=== PATIENT | female | born 1990 | race Asian ===

== ENCOUNTER 2017-03-13 16:39 | Emergency (ER) | payer MEDICAID, OTHER ==
[~2017-03-13] VITALS: Ht 152.4 cm; Wt 50.0 kg
[2017-03-13 16:43] VITALS: Ht 152.4 cm; Wt 50.0 kg
[2017-03-13] MEDS ORDERED: ONDANSETRON 4 MG INJ IV STA (18:45)
[2017-03-13] MEDS ORDERED: SOD CHLORIDE 0.9% 1,000 ML IV STA (18:45)
--- NOTE | 2017-03-13 19:12 | RADRPT ---
PROCEDURE: US OB. CLINICAL INDICATION: 26 real female with abdominal pain. TECHNIQUE: Transabdominal and transvaginal views of the pelvis are available for review. COMPARISON: No prior studies are available for comparison. FINDINGS: The uterus is anteflexed and contains a gestational sac measuring 2.9 x 1.8 x 3.3 cm. Mean sac diam eter is 2.65 cm which calculates to 7 weeks 5 days. Placenta: Circumferential. Presentation:[place]-rump length:1.1 cm equals 7 weeks 1 day. heart rate:161 beats per minute. Amniotic fluid volume: Normal. A yolk sac is identified. Ultrasound estimated gestational age:7 weeks 3 days plus or minus 0 weeks 4 days. SHEA FALGUNI) October 27, 2017. No ovarian or adnexal mass lesion is seen. There is no free fluid. The ovaries were not visualized. IMPRESSION: 1. A single viable fetus is identified with a heart rate of 161 beats per minute. AUA = 7 weeks 3 days plus or minus 0 weeks 4 days. 2. SHEA (FALGUNI)= October 27, 2017. RPTAT:AAJJ Physician Carolina Date Time Electronically viewed and signed by Physician Carolina on 03/13/2017 19:11 CHAN/
[2017-03-13 19:33] LABS: ADD SCAN DIFF NO
[2017-03-13 19:41] LABS: BASOPHILS % 0.2 % (0.0-2.0); EOSINOPHILS % 0.2 % (0.0-7.0); HEMATOCRIT 38.5 % (37.0-47.0); LYMPHOCYTES # 1.4 10^3/ul (0.8-2.9); LYMPHOCYTES % 11.3 % (15.0-51.0); MEAN CORPUSCULAR HGB CONC 33.8 g/dl (32.0-37.0); MEAN CORPUSCULAR VOLUME 85.9 fl (82.0-101.0); MEAN PLATELET VOLUME 9.4 fl (7.4-10.4); MONOCYTE # 0.7 10^3/ul (0.3-0.9); MONOCYTES % 5.2 % (0.0-11.0); NEUTROPHIL # 10.4 10^3/ul (1.6-7.5); NEUTROPHILS % 82.6 % (39.0-77.0); PLATELET COUNT 344 10^3/UL (140-415); RED BLOOD COUNT 4.48 10^6/ul (4.20-5.40); RED CELL DISTRIBUTION WIDTH 12.1 % (11.5-14.5); WHITE BLOOD COUNT 12.6 10^3/ul (4.8-10.8)
[2017-03-13 20:13] LABS: ADD UMIC YES; URINE BILIRUBIN (Dip) NEGATIVE (NEGATIVE); URINE BLOOD (Dip) TRACE (NEGATIVE); URINE COLOR YELLOW (YELLOW); URINE GLUCOSE (Dip) NEGATIVE (NEGATIVE); URINE KETONES (Dip) 3+ (NEGATIVE); URINE LEUKOCYTE ESTERASE (Dip) NEGATIVE (NEGATIVE); URINE NITRITE (Dip) NEGATIVE (NEGATIVE); URINE TOTAL PROTEIN (Dip) TRACE (NEGATIVE); URINE UROBILINOGEN (Dip) 0.2 E.U./dL (0.1-1.0)
[2017-03-13 20:29] LABS: ALBUMIN 5.1 g/dl (3.3-4.9); POTASSIUM 3.5 mmol/L (3.5-5.1)
[2017-03-13 20:30] LABS: BACTERIA,URINE FEW; SQUAMOUS EPITHELIAL CELL,UR MANY; URINE RBCS 0-2 /HPF (0)
[2017-03-13 20:32] LABS: ALBUMIN/GLOBULIN RATIO 1.59; BILIRUBIN,INDIRECT 0.3 mg/dl (0-1.1); BILIRUBIN,TOTAL 0.3 mg/dl (0.2-1.3); CREATININE 0.46 mg/dl (0.44-1.00); TOTAL PROTEIN 8.3 g/dl (6.1-8.1)
[2017-03-13 20:33] LABS: CALCIUM 9.5 mg/dl (8.4-10.2)
[2017-03-13] MEDS ORDERED: ONDA4TAB14 PO (21:38)
[2017-03-13] MEDS ORDERED: METO10TA92 PO (21:38)
--- NOTE | 2017-03-13 21:42 | ERD ---
ER Documentation Chief Complaint Date/Time DATE: 03/13/17 TIME: 21:40 Chief Complaint 7 WEEKS WITH NAUESEA AND VOMITING HPI Patient is a 26-year-old patient is a 26-year-old female who is approximately 7 weeks complaining of intermittent nausea and vomiting. She also admits to intermittent pelvic pain. Denies any dysuria hematuria or urinary frequency. She states she alternates between taking Reglan and Zofran at home. Denies fever. Denies any vaginal bleeding. ROS All systems reviewed and are negative except as per history of present illness. Medications Home Meds Active Scripts Ondansetron (Ondansetron Odt) 4 Mg Tab.rapdis, 4 MG PO Q6H Y for NAUSEA AND/OR VOMITING, #15 TAB Prov:DEYANIRA OTERO PA-C 03/13/17 Metoclopramide* (Reglan*) 10 Mg Tablet, 10 MG PO Q6 Y for NAUSEA AND/OR VOMITING , #15 TAB Prov:DEYANIRA OTERO PA-C 03/13/17 PMhx/Soc Medical and Surgical Hx: pt denies Medical Hx, pt denies Surgical Hx History of Surgery: No (DENIES MEDICAL AND SURGICAL HX.) Hx Alcohol Use: No Hx Substance Use: No Hx Tobacco Use: No Smoking Status: Never smoker FmHx Family History: No diabetes Physical Exam Vitals Vital Signs Date Time Temp Pulse Resp B/P Pulse Ox O2 Delivery O2 Flow Rate FiO2 03/13/17 16:43 98.7 87 20 130/70 99 Physical Exam Const: [] Head: Atraumatic General: well developed, well nourished, alert, nontoxic, no distress Head: normocephalic, atraumatic Eyes: PERRL, normal conjunctiva Neck: Supple, nontender, no lymphadenopathy, no midline tenderness Respiratory: Clear to auscaultation bilaterally, speaks in full sentences, no use of accesory muscles or labored breathing, no rales, ronchi, or wheezing Cardiovascular: RRR, No murmurs GI: soft, non tender, non distended, negative murphys sign, negative mcburneys point tenderness, no cva tenderness bilaterally, no rebound or guarding Result Diagram: 03/13/17190903/13/171909 Results 24 hrs Laboratory Tests Test 03/13/17 19:10 03/13/17 19:52 White Blood Count 12.610^3/ul Red Blood Count 4.4810^6/ul Hemoglobin 13.0g/dl Hematocrit 38.5% Mean Corpuscular Volume 85.9fl Mean Corpuscular Hemoglobin 29.0pg Mean Corpuscular Hemoglobin Concent 33.8g/dl Red Cell Distribution Width 12.1% Platelet Count 36087^3/UL Mean Platelet Volume 9.4fl Neutrophils % 82.6% Lymphocytes % 11.3% Monocytes % 5.2% Eosinophils % 0.2% Basophils % 0.2% Nucleated Red Blood Cells % 0.0/100WBC Neutrophils # 10.410^3/ul Lymphocytes # 1.410^3/ul Monocytes # 0.710^3/ul Eosinophils # 0.010^3/ul Basophils # 0.010^3/ul Nucleated Red Blood Cells # 0.010^3/ul Sodium Level 138mmol/L Potassium Level 3.5mmol/L Chloride Level 105mmol/L Carbon Dioxide Level 25mmol/L Anion Gap 12 Blood Urea Nitrogen 7mg/dl Creatinine 0.46mg/dl Glucose Level 86mg/dl Calcium Level 9.5mg/dl Total Bilirubin 0.3mg/dl Direct Bilirubin 0.00mg/dl Indirect Bilirubin 0.3mg/dl Aspartate Amino Transf (AST/SGOT) 26IU/L Alanine Aminotransferase (ALT/SGPT) 25IU/L Alkaline Phosphatase 46IU/L Total Protein 8.3g/dl Albumin 5.1g/dl Globulin 3.20g/dl Albumin/Globulin Ratio 1.59 Beta HCG, Quantitative 509730.0mIU/ml Urine Color YELLOW Urine Clarity CLEAR Urine pH 6.0 Urine Specific [place] >=1.030 Urine Ketones 3+ Urine Nitrite NEGATIVE Urine Bilirubin NEGATIVE Urine Urobilinogen 0.2 E.U./dL Urine Leukocyte Esterase NEGATIVE Urine Microscopic RBC 0-2/HPF Urine Microscopic WBC 2-5/HPF Urine Squamous Epithelial Cells MANY Urine Bacteria FEW Urine Hemoglobin TRACE Urine Glucose NEGATIVE% Urine Total Protein TRACE Current Medications Medications (Trade) Dose Ordered Sig/Tonia Route PRN Reason Start Time Stop Time Status Last Admin Dose Admin Sodium Chloride (NS) 1,000 ml @ 1,000 mls/hr Q1H STAT IV 03/13/17 18:45 03/13/17 19:44 DC 03/13/17 19:19 Ondansetron HCl (Zofran Inj) 4 mg ONCE STAT IV 03/13/17 18:45 03/13/17 18:47 DC 03/13/17 19:18 Procedures/MDM 26-year-old female has nausea and vomiting. Her vitals are normal and her exam is normal. Her ultrasound and blood work are also unremarkable. She felt better with IV fluids and Zofran and will be discharged with Zofran and Reglan as she alternates between the 2 at home. She was also given copies of all of her labs and ultrasound reports that she can follow with primary care. Recommended this patient follow up with her primary care doctor within 48 hours or return to the emergency room for any worsening of symptoms. However this time I do believe there is suitable for outpatient management. I answered all their questions and they agreed with the plan and were discharged home. Departure Diagnosis: Primary Impression: Nausea and vomiting Condition: Stable Patient Instructions: Nausea and Vomiting-Adult Additional Instructions: Call your primary care doctor TOMORROW for an appointment during the next 1-2 days.See the doctor sooner or return here if your condition worsens before your appointment time. DEYANIRA OTERO PA-C March 13, 2017 21:42
[2017-03-13 21:49] VITALS: BP 105/88; PULSE 83; RESP 16
== END 2017-03-13 21:59 | disposition home or self-care (01) ==
LOC: FTE 16:39
DX: O21.9 Vomiting of pregnancy, unspecified (principal); R10.2 Pelvic and perineal pain; Z3A.01 Less than 8 weeks gestation of pregnancy
CPT/HCPCS: 36415; 76801; 80053; 81001; 84702; 85025; 86900; 86901; 96361; 96374; J2405; J7030; Z7502

== ENCOUNTER 2017-03-17 09:16 | Emergency (ER) | payer MEDICAID, OTHER ==
[~2017-03-17] VITALS: Ht 157.5 cm; Wt 49.5 kg
[~2017-03-17 09:16] MED LIST: METO10TA92 PO; ONDA4TAB14 PO
[2017-03-17 09:19] VITALS: Ht 157.5 cm; Wt 49.5 kg
[2017-03-17] MEDS ORDERED: ONDANSETRON 4 MG INJ IV STA (09:55)
[2017-03-17] MEDS ORDERED: SOD CHLORIDE 0.9% 1,000 ML IV ONE ×2 (10:00→12:00)
[2017-03-17 10:15] LABS: ADD SCAN DIFF NO
[2017-03-17 10:19] LABS: BASOPHILS % 0.3 % (0.0-2.0); EOSINOPHILS % 0.1 % (0.0-7.0); HEMATOCRIT 39.2 % (37.0-47.0); HEMOGLOBIN 13.5 g/dl (12.0-16.0); LYMPHOCYTES # 1.2 10^3/ul (0.8-2.9); LYMPHOCYTES % 9.6 % (15.0-51.0); MEAN CORPUSCULAR HEMOGLOBIN 29.4 pg (29.0-33.0); MEAN CORPUSCULAR HGB CONC 34.4 g/dl (32.0-37.0); MEAN CORPUSCULAR VOLUME 85.4 fl (82.0-101.0); MEAN PLATELET VOLUME 9.2 fl (7.4-10.4); MONOCYTE # 0.6 10^3/ul (0.3-0.9); MONOCYTES % 4.6 % (0.0-11.0); NEUTROPHILS % 84.9 % (39.0-77.0); PLATELET COUNT 355 10^3/UL (140-415); RED BLOOD COUNT 4.59 10^6/ul (4.20-5.40); RED CELL DISTRIBUTION WIDTH 11.9 % (11.5-14.5)
[2017-03-17] MEDS ORDERED: FAMOTIDINE 20 MG TAB PO ONE (10:30)
[2017-03-17 10:36] LABS: ADD UMIC YES; URINE BILIRUBIN (Dip) NEGATIVE (NEGATIVE); URINE BLOOD (Dip) TRACE (NEGATIVE); URINE COLOR LT. YELLOW (YELLOW); URINE GLUCOSE (Dip) NEGATIVE (NEGATIVE); URINE KETONES (Dip) 3+ (NEGATIVE); URINE LEUKOCYTE ESTERASE (Dip) NEGATIVE (NEGATIVE); URINE NITRITE (Dip) NEGATIVE (NEGATIVE); URINE TOTAL PROTEIN (Dip) TRACE (NEGATIVE); URINE UROBILINOGEN (Dip) 1.0 E.U./dL (0.1-1.0)
[2017-03-17 10:42] LABS: ALBUMIN 5.2 g/dl (3.3-4.9); ALBUMIN/GLOBULIN RATIO 1.57; BILIRUBIN,INDIRECT 0.4 mg/dl (0-1.1); BILIRUBIN,TOTAL 0.4 mg/dl (0.2-1.3); CALCIUM 9.5 mg/dl (8.4-10.2); CREATININE 0.48 mg/dl (0.44-1.00); POTASSIUM 4.2 mmol/L (3.5-5.1); TOTAL PROTEIN 8.5 g/dl (6.1-8.1)
[2017-03-17 10:47] LABS: BACTERIA,URINE MODERATE; MUCUS,URINE MANY
[2017-03-17] MEDS ORDERED: METOCLOPRAMIDE 10 MG INJ IV ONE (13:00)
--- NOTE | 2017-03-17 13:06 | ERD ---
ER Documentation Chief Complaint Date/Time DATE: 03/17/17 TIME: 13:03 Chief Complaint HYPEREMESIS 8 WEEKS HPI Is a 26-year-old female who presents to the emergency department today complaining of nausea and vomiting that is intermittent but persistent. Patient states that she is 7 weeks . States she was here a few days ago and felt better after the medication and IV fluids. States she has some mild crampy abdominal pain. States she has been alternating Reglan and Zofran and trying to eat before getting out of bed. States she has a doctor at [facility] Dr. Jorje Aviles and he gave her Diclogis 2 weeks ago. States that those were samples. Denies any fevers or chills. ROS All systems reviewed and are negative except as per history of present illness. Medications Home Meds Active Scripts Famotidine* (Pepcid*) 20 Mg Tablet, 20 MG PO BID for 10 Days, TAB Prov:HUSSAIN MATTHEWS PA-C 03/17/17 Ondansetron (Ondansetron Odt) 4 Mg Tab.rapdis, 4 MG PO Q6H Y for NAUSEA AND/OR VOMITING, #15 TAB Prov:DEYANIRA OTERO PA-C 03/13/17 Metoclopramide* (Reglan*) 10 Mg Tablet, 10 MG PO Q6 Y for NAUSEA AND/OR VOMITING , #15 TAB Prov:DEYANIRA OTERO PA-C 03/13/17 Allergies Allergies: Coded Allergies: No Known Allergy (Unverified , 03/17/17) PMhx/Soc Medical and Surgical Hx: pt denies Medical Hx, pt denies Surgical Hx History of Surgery: No Anesthesia Reaction: No Hx Neurological Disorder: No Hx Respiratory Disorders: No Hx Cardiac Disorders: No Hx Psychiatric Problems: No Hx Miscellaneous Medical Probl: No Hx Alcohol Use: No Hx Substance Use: No Hx Tobacco Use: No Smoking Status: Never smoker Physical Exam Vitals Vital Signs Date Time Temp Pulse Resp B/P Pulse Ox O2 Delivery O2 Flow Rate FiO2 03/17/17 09:19 98.8 104 18 126/78 99 Physical Exam Const: [] Head: Atraumatic Eyes: Normal Conjunctiva ENT: Normal External Ears, Nose and Mouth. Neck: Full range of motion..~ No meningismus. Resp: Clear to auscultation bilaterally Cardio: Regular rate and rhythm, no murmurs Abd: Soft, non tender, non distended. Normal bowel sounds Skin: No petechiae or rashes Back: No midline or flank tenderness Ext: No cyanosis, or edema Neur: Awake and alert Psych: Normal Mood and Affect Result Diagram: 03/17/17 1005 03/17/17 1005 Results 24 hrs Laboratory Tests Test 03/17/17 10:05 White Blood Count 13.010^3/ul Red Blood Count 4.5910^6/ul Hemoglobin 13.5g/dl Hematocrit 39.2% Mean Corpuscular Volume 85.4fl Mean Corpuscular Hemoglobin 29.4pg Mean Corpuscular Hemoglobin Concent 34.4g/dl Red Cell Distribution Width 11.9% Platelet Count 50571^3/UL Mean Platelet Volume 9.2fl Neutrophils % 84.9% Lymphocytes % 9.6% Monocytes % 4.6% Eosinophils % 0.1% Basophils % 0.3% Nucleated Red Blood Cells % 0.0/100WBC Neutrophils # 11.010^3/ul Lymphocytes # 1.210^3/ul Monocytes # 0.610^3/ul Eosinophils # 0.010^3/ul Basophils # 0.010^3/ul Nucleated Red Blood Cells # 0.010^3/ul Urine Color LT. YELLOW Urine Clarity CLEAR Urine pH 6.0 Urine Specific [place] >=1.030 Urine Ketones 3+ Urine Nitrite NEGATIVE Urine Bilirubin NEGATIVE Urine Urobilinogen 1.0 E.U./dL Urine Leukocyte Esterase NEGATIVE Urine Microscopic RBC 5-10/HPF Urine Microscopic WBC 5-10/HPF Urine Epithelial Cells MODERATE Urine Bacteria MODERATE Urine Mucus MANY Urine Hemoglobin TRACE Urine Glucose NEGATIVE% Urine Total Protein TRACE Sodium Level 140mmol/L Potassium Level 4.2mmol/L Chloride Level 104mmol/L Carbon Dioxide Level 22mmol/L Anion Gap 18 Blood Urea Nitrogen 7mg/dl Creatinine 0.48mg/dl Glucose Level 75mg/dl Calcium Level 9.5mg/dl Total Bilirubin 0.4mg/dl Direct Bilirubin 0.00mg/dl Indirect Bilirubin 0.4mg/dl Aspartate Amino Transf (AST/SGOT) 20IU/L Alanine Aminotransferase (ALT/SGPT) 28IU/L Alkaline Phosphatase 45IU/L Total Protein 8.5g/dl Albumin 5.2g/dl Globulin 3.30g/dl Albumin/Globulin Ratio 1.57 Lipase 67U/L Current Medications Medications (Trade) Dose Ordered Sig/Tonia Route PRN Reason Start Time Stop Time Status Last Admin Dose Admin Ondansetron HCl 4 mg 4 mg ONCE STAT IV 03/17/17 09:55 03/17/17 09:57 DC 03/17/17 10:09 Sodium Chloride (NS) 1,000 ml @ 1,000 mls/hr Q1H ONCE IV 03/17/17 10:00 03/17/17 10:59 DC 03/17/17 10:09 Famotidine 20 mg 20 mg ONCE ONCE PO 03/17/17 10:30 03/17/17 10:31 DC 03/17/17 10:14 Sodium Chloride (NS) 1,000 ml @ 1,000 mls/hr Q1H ONCE IV 03/17/17 12:00 03/17/17 12:59 DC 03/17/17 12:00 Metoclopramide HCl (Reglan) 10 mg ONCE ONCE IV 03/17/17 13:00 03/17/17 13:01 DC 03/17/17 13:09 Procedures/MDM This a 26-year-old female who presents to the emergency department today for nausea and vomiting in . Patient was seen here 4 days ago and had a complete workup at that time. She is a that is approximately 7 weeks . Patient's laboratory work showed a mildly elevated white blood cell count at that time however all other laboratory work was within normal limits. She had no evidence of urinary tract infection. Her ultrasound was normal and showed an IUP of 7 weeks with good heart tones at 161. On physical exam she did have some mild epigastric pain. Patient is afebrile and otherwise well-appearing however given that patient is I did repeat laboratory work. I do not feel the patient requires a repeat ultrasound at this time given patient had a normal ultrasound 4 days ago. Patient had no pelvic pain on physical exam. Laboratory work today shows a mildly elevated white blood cell count of 13. She is not anemic. Platelets are within normal limits. Electrolytes are within normal limits. Glucose within normal limits. Liver functions normal limits. Lipase within normal limits. UA is negative for infection but showed 3+ ketones. Patient was given Zofran here in the emergency department as well as 2 L of fluids. She is not actively vomiting and I have not seen her vomiting here during the course of her stay. She did drink some juice and was able to tolerate that however she did feel a little bit of nausea and was then even Zofran. Given patient's normal laboratory workup and she is not actively vomiting I do not feel the patient requires admission at this time. I discussed with the patient that she should follow back up with her doctor at [facility] it is before her scheduled visit for a couple weeks from now. Patient understood. Patient symptoms at this time is consistent with vomiting during of her says hyperemesis gravidarum. Patient indicated she had Zofran and Reglan at home. I will give her a prescription for Pepcid. Discussed the patient with Dr. Cortes and he is in agreement with the plan. Departure Diagnosis: Primary Impression: Vomiting during Condition: HUSSAIN Malloy PA-C Mar 17, 2017 13:06
[2017-03-17] MEDS ORDERED: FAMO-18 PO (13:16)
== END 2017-03-17 13:29 | disposition home or self-care (01) ==
LOC: FTE 09:16
DX: O21.9 Vomiting of pregnancy, unspecified (principal); Z3A.01 Less than 8 weeks gestation of pregnancy
CPT/HCPCS: 80053; 81001; 83690; 85025; J2405; J2765; J7030; Z7610; 36415; 96374; 96375

== ENCOUNTER 2018-11-12 14:32 | Emergency (ER) | payer OTHER ==
[~2018-11-12] VITALS: Wt 57.2 kg
[~2018-11-12 14:32] MED LIST changes: +DOXY25TA33 PO; +FAMO-96 PO; +PYRI25TA4 PO
--- NOTE | 2018-11-12 16:17 | ERD ---
ER Documentation Chief Complaint Chief Complaint /o epigastric pain with N/V. 10 weeks HPI 27-year-old female, with a EGA 12 weeks by LMP 09/11/18, presents to the emergency department, complaining of 3 days with worsening of nausea, persistent vomiting, pelvic pain and general malaise. The patient has already established care. She denies vaginal bleeding, no fever, no chills, no urinary symptoms. ROS All systems reviewed and are negative except as per history of present illness. Medications Home Meds Active Scripts Famotidine* (Pepcid*) 20 Mg Tablet, 20 MG PO BID for 10 Days, #20 TAB Prov:YESSY HURST MD 11/12/18 Doxylamine Succinate* (Unisom Sleep Aid*) 25 Mg Tablet, 25 MG PO HS, #60 TAB Prov:YESSY HURST MD 11/01/18 Pyridoxine Hcl* (Pyridoxine Hcl*) 25 Mg Tablet, 25 MG PO QHS, #60 TAB Prov:YESSY HURST MD 11/01/18 Famotidine* (Pepcid*) 20 Mg Tablet, 20 MG PO BID for 10 Days, TAB Prov:HUSSAIN MATTHEWS PA-C 03/17/17 Ondansetron (Ondansetron Odt) 4 Mg Tab.rapdis, 4 MG PO Q6H PRN for NAUSEA AND/OR VOMITING, #15 TAB Prov:DEYANIRA OTERO PA-C 03/13/17 Metoclopramide* (Reglan*) 10 Mg Tablet, 10 MG PO Q6 PRN for NAUSEA AND/OR VOMITING, #15 TAB Prov:DEYANIRA OTERO PA-C 03/13/17 Allergies Allergies: Coded Allergies: No Known Allergy (Unverified , 03/17/17) PMhx/Soc History of Surgery: No Anesthesia Reaction: No Hx Neurological Disorder: No Hx Respiratory Disorders: No Hx Cardiac Disorders: No Hx Psychiatric Problems: No Hx Miscellaneous Medical Probl: No Hx Alcohol Use: No Hx Substance Use: No Hx Tobacco Use: No FmHx Family History: No diabetes, No coronary disease Physical Exam Vitals Vital Signs Date Temp Pulse Resp B/P (MAP) Pulse Ox O2 O2 Flow FiO2 Time Delivery Rate 11/12/18 99.1 92 16 123/65 100 Room Air 19:40 (84) 11/12/18 99.7 105 20 122/79 98 14:36 (93) Physical Exam Const: No acute distress Head: Atraumatic Eyes: Normal Conjunctiva ENT: Normal External Ears, Nose and Mouth. Neck: Full range of motion. No meningismus. Resp: Clear to auscultation bilaterally Cardio: Regular rate and rhythm, no murmurs Abd: Soft, non tender, non distended. Normal bowel sounds Skin: No petechiae or rashes Back: No midline or flank tenderness Ext: No cyanosis, or edema Neur: Awake and alert Psych: Normal Mood and Affect Result Diagram: 11/12/18 1640 11/12/18 1640 Results 24 hrs Laboratory Tests Test 11/12/18 16:40 White Blood Count 13.2 10^3/ul Red Blood Count 4.72 10^6/ul Hemoglobin 13.2 g/dl Hematocrit 39.0 % Mean Corpuscular Volume 82.6 fl Mean Corpuscular Hemoglobin 28.0 pg Mean Corpuscular Hemoglobin Concent 33.8 g/dl Red Cell Distribution Width 12.4 % Platelet Count 369 10^3/UL Mean Platelet Volume 9.3 fl Immature Granulocytes % 0.500 % Neutrophils % 76.8 % Lymphocytes % 14.6 % Monocytes % 7.4 % Eosinophils % 0.4 % Basophils % 0.3 % Nucleated Red Blood Cells % 0.0 /100WBC Immature Granulocytes # 0.070 10^3/ul Neutrophils # 10.1 10^3/ul Lymphocytes # 1.9 10^3/ul Monocytes # 1.0 10^3/ul Eosinophils # 0.1 10^3/ul Basophils # 0.0 10^3/ul Nucleated Red Blood Cells # 0.0 10^3/ul Urine Color YELLOW Urine Clarity SLIGHTLY CLOUDY Urine pH 5.0 Urine Specific [place] 1.032 Urine Ketones 1+ mg/dL Urine Nitrite NEGATIVE mg/dL Urine Bilirubin NEGATIVE mg/dL Urine Urobilinogen NEGATIVE mg/dL Urine Leukocyte Esterase NEGATIVE [place]/ul Urine Microscopic RBC 2 /HPF Urine Microscopic WBC 1 /HPF Urine Squamous Epithelial Cells MODERATE /HPF Urine Bacteria FEW /HPF Urine Mucus MANY /HPF Urine Hemoglobin NEGATIVE mg/dL Urine Glucose NEGATIVE mg/dL Urine Total Protein NEGATIVE mg/dl Sodium Level 138 mmol/L Potassium Level 3.7 mmol/L Chloride Level 99 mmol/L Carbon Dioxide Level 24 mmol/L Anion Gap 15 Blood Urea Nitrogen 6 mg/dl Creatinine 0.45 mg/dl Est Glomerular Filtrat Rate mL/min > 60 mL/min Glucose Level 96 mg/dl Calcium Level 9.9 mg/dl Total Bilirubin 0.0 mg/dl Direct Bilirubin 0.00 mg/dl Indirect Bilirubin 0.0 mg/dl Aspartate Amino Transf (AST/SGOT) 20 IU/L Alanine Aminotransferase (ALT/SGPT) 9 IU/L Alkaline Phosphatase 53 IU/L Total Protein 8.5 g/dl Albumin 4.7 g/dl Globulin 3.80 g/dl Albumin/Globulin Ratio 1.23 Lipase 114 U/L Current Medications Medications Dose Sig/Tonia Start Time Status Last (Trade) Ordered Route PRN Stop Time Admin Dose Reason Admin Lactated 1,000 ml @ Q1H STAT 11/12/18 DC 11/12/18 Ringer's 1,000 mls/hr IV 16:28 16:37 11/12/18 17:27 10 mg ONCE ONCE 11/12/18 DC 11/12/18 Metoclopramid PO 16:30 16:37 e HCl 11/12/18 16:33 (Reglan) Lactated 1,000 ml @ Q1H ONCE 11/12/18 DC 11/12/18 Ringer's 1,000 mls/hr IV 18:30 18:14 11/12/18 19:29 Famotidine 20 mg ONCE ONCE 11/12/18 DC 11/12/18 (Pepcid Iv) IV 18:30 18:14 11/12/18 18:31 Procedures/MDM Vital signs stable, Physical exam unremarkable. Differential diagnosis include but not limited to: Gastroenteritis, appendicitis, dehydration, hyperemesis gravidarum, UTI, anemia. Physical examination and clinical presentation most likely consistent with hyperemesis gravidarum. During the ED course the patient remained hemodynamically stable and asymptomatic, she received IV hydration and Reglan p.o. with marked improvement of the symptoms. Results and clinical impression discussed with patient who agrees with management. The patient is stable to be treated outpatient and will be discharged home with close monitoring and follow-up in 2 days with her primary physician. The patient was instructed regarding the outcomes and the potential complications like severe bleeding and . If the patient presents severe bleeding or pain, she was instructed to return to the hospital immediately. Disclaimer: Inadvertent spelling and grammatical errors are likely due to EHR/dictation software use and do not reflect on the overall quality of patient care. Also, please note that the electronic time recorded on this note does not necessarily reflect the actual time of the patient encounter. Departure Diagnosis: Primary Impression: Hyperemesis gravidarum Condition: Stable Additional Instructions: Thank you very much for allowing us to participate in your care. Your health and safety is our top priority at [facility]. Call your primary care doctor TOMORROW for an appointment during the next 2-4 days and bring all the information and medications prescribed. Have prescriptions filled and follow precisely the directions on the label. If the symptoms get worse and your provider is unavailable, return to the Emergency Department immediately. YESSY HURST MD Nov 12, 2018 16:17
[2018-11-12] MEDS ORDERED: LACTATED RINGER'S 1,000 ML IV STA (16:28)
[2018-11-12] MEDS ORDERED: METOCLOPRAMIDE 10 MG TAB PO ONE (16:30)
[2018-11-12] MEDS ORDERED: FAMOTIDINE 20 MG INJ IV ONE (18:30)
[2018-11-12] MEDS ORDERED: LACTATED RINGER'S 1,000 ML IV ONE (18:30)
[2018-11-12] MEDS ORDERED: FAMO-96 PO (19:05)
[2018-11-12 19:40] VITALS: BP 123/65; PULSE 92; RESP 16
== END 2018-11-12 19:42 | disposition home or self-care (01) ==
LOC: FTE 14:32
DX: O21.9 Vomiting of pregnancy, unspecified (principal); Z3A.10 10 weeks gestation of pregnancy
CPT/HCPCS: 36415; 80053; 81001; 83690; 85025; 96374; J7120; Z7502; Z7610; 81003

== ENCOUNTER 2018-12-02 16:38 | Emergency (ER) | payer OTHER ==
[~2018-12-02] VITALS: Ht 165.1 cm; Wt 55.7 kg
[2018-12-02 16:49] VITALS: Ht 165.1 cm; Wt 55.7 kg
[2018-12-02] MEDS ORDERED: LACTATED RINGER'S 1,000 ML IV ONE (23:00)
[2018-12-02] MEDS ORDERED: FAMOTIDINE 20 MG INJ IV ONE (23:00)
[2018-12-02] MEDS ORDERED: METOCLOPRAMIDE 10 MG INJ IV ONE (23:00)
[2018-12-03 00:35] VITALS: BP 107/55; PULSE 87; RESP 18
[2018-12-03] MEDS ORDERED: LACTATED RINGER'S 500 ML IV ONE (01:30)
[2018-12-03] MEDS ORDERED: METO10TA3 PO (02:09)
[2018-12-03] MEDS ORDERED: PYRI25TA4 PO (02:09)
[2018-12-03] MEDS ORDERED: ONDA4TAB14 PO (02:09)
--- NOTE | 2018-12-03 17:11 | ERD ---
ER Documentation Chief Complaint Chief Complaint Complains of vomiting x3 days and 13 weeks HPI 28 year-old [female] coming in today with Chief Complaint: Vomiting History of Present Illness: Patient coming in today with complaint of vomiting for 3 days. Patient reports to be 13 weeks . Patient reports recent e pisode of similar vomiting during October 2018. At home medications and remedies without success. Patient reporting abdominal pain to epigastric area, burning, /. Patient reporting vomiting with yellow color, unable to tolerate food or liquid. Review of systems: All systems were reviewed and are negative except for what is indicated in the history of present illness. Past Medical History: [Negative for hypertension, diabetes or other medical problems] Social History: [Patient denies tobacco, alcohol, elicit drug use] Medications: [None] [Reviewed as documented Nursing Notes] Allergies: [NKDA] [Reviewed as documented in Nursing Notes] Social Concerns: Denies ROS All systems reviewed and are negative except as per history of present illness. Medications Home Meds Active Scripts Ondansetron (Ondansetron Odt) 4 Mg Tab.rapdis, 4 MG PO Q6H PRN for NAUSEA AND/OR VOMITING, #20 TAB Prov:NILSON MARIA NP 12/03/18 Metoclopramide Hcl* (Metoclopramide Hcl*) 10 Mg Tablet, 10 MG PO Q12, #10 TAB Prov:NILSON MARIA NP 12/03/18 Pyridoxine Hcl* (Pyridoxine Hcl*) 25 Mg Tablet, 25 MG PO QHS for NAUSEA PREVENTION, #60 TAB Prov:NILSON MARIA NP 12/03/18 Famotidine* (Pepcid*) 20 Mg Tablet, 20 MG PO BID for 10 Days, #20 TAB Prov:YESSY HURST MD 11/12/18 Doxylamine Succinate* (Unisom Sleep Aid*) 25 Mg Tablet, 25 MG PO HS, #60 TAB Prov:YESSY HURST MD 11/01/18 Pyridoxine Hcl* (Pyridoxine Hcl*) 25 Mg Tablet, 25 MG PO QHS, #60 TAB Prov:YESSY HURST MD 11/01/18 Famotidine* (Pepcid*) 20 Mg Tablet, 20 MG PO BID for 10 Days, TAB Prov:HUSSAIN MATTHEWS PA-C 03/17/17 Ondansetron (Ondansetron Odt) 4 Mg Tab.rapdis, 4 MG PO Q6H PRN for NAUSEA AND/OR VOMITING, #15 TAB Prov:DEYANIRA OTERO PA-C 03/13/17 Metoclopramide* (Reglan*) 10 Mg Tablet, 10 MG PO Q6 PRN for NAUSEA AND/OR VOMITING, #15 TAB Prov:DEYANIRA OTERO PA-C 03/13/17 Allergies Allergies: Coded Allergies: No Known Allergy (Unverified , 03/17/17) PMhx/Soc History of Surgery: No Anesthesia Reaction: No Hx Neurological Disorder: No Hx Respiratory Disorders: No Hx Cardiac Disorders: No Hx Psychiatric Problems: No Hx Miscellaneous Medical Probl: No Hx Alcohol Use: No Hx Substance Use: No Hx Tobacco Use: No FmHx Family History: No diabetes, No coronary disease Physical Exam Vitals Vital Signs Date Temp Pulse Resp B/P (MAP) Pulse Ox O2 O2 Flow FiO2 Time Delivery Rate 12/03/18 98.4 87 18 107/55 99 Room Air 00:35 (72) 12/02/18 97.8 114 20 128/74 98 16:49 (92) Physical Exam Const: No acute distress Head: Atraumatic Eyes: Normal Conjunctiva ENT: Normal External Ears, Nose and Mouth. Neck: Full range of motion. No meningismus. Resp: Clear to auscultation bilaterally Cardio: Regular rate and rhythm, no murmurs Abd: Soft, non tender, non distended. Normal bowel sounds Skin: No petechiae or rashes Back: No midline or flank tenderness Ext: No cyanosis, or edema Neur: Awake and alert Psych: Normal Mood and Affect Result Diagram: 12/02/18229912/02/182299 Results 24 hrs Laboratory Tests Test 12/02/18 22:59 12/02/18 23:00 Beta HCG, Quantitative 859805.0 mIU/ml White Blood Count 14.4 10^3/ul Red Blood Count 4.93 10^6/ul Hemoglobin 13.8 g/dl Hematocrit 41.8 % Mean Corpuscular Volume 84.8 fl Mean Corpuscular Hemoglobin 28.0 pg Mean Corpuscular Hemoglobin Concent 33.0 g/dl Red Cell Distribution Width 12.6 % Platelet Count 362 10^3/UL Mean Platelet Volume 8.8 fl Immature Granulocytes % 0.600 % Neutrophils % 79.1 % Lymphocytes % 13.8 % Monocytes % 5.9 % Eosinophils % 0.3 % Basophils % 0.3 % Nucleated Red Blood Cells % 0.0 /100WBC Immature Granulocytes # 0.090 10^3/ul Neutrophils # 11.4 10^3/ul Lymphocytes # 2.0 10^3/ul Monocytes # 0.9 10^3/ul Eosinophils # 0.0 10^3/ul Basophils # 0.0 10^3/ul Nucleated Red Blood Cells # 0.0 10^3/ul Urine Color YELLOW Urine Clarity SLIGHTLY CLOUDY Urine pH 6.0 Urine Specific [place] 1.033 Urine Ketones 2+ mg/dL Urine Nitrite NEGATIVE mg/dL Urine Bilirubin NEGATIVE mg/dL Urine Urobilinogen NEGATIVE mg/dL Urine Leukocyte Esterase NEGATIVE [place]/ul Urine Microscopic RBC 2 /HPF Urine Microscopic WBC 3 /HPF Urine Squamous Epithelial Cells FEW /HPF Urine Bacteria FEW /HPF Urine Mucus MANY /HPF Urine Hemoglobin NEGATIVE mg/dL Urine Glucose 1+ mg/dL Urine Total Protein 1+ mg/dl Sodium Level 137 mmol/L Potassium Level 4.3 mmol/L Chloride Level 96 mmol/L Carbon Dioxide Level 25 mmol/L Anion Gap 16 Blood Urea Nitrogen 9 mg/dl Creatinine 0.48 mg/dl Est Glomerular Filtrat Rate mL/min > 60 mL/min Glucose Level 82 mg/dl Calcium Level 9.7 mg/dl Current Medications Medications Dose Sig/Tonia Start Time Status Last (Trade) Ordered Route PRN Stop Time Admin Dose Reason Admin Lactated 1,000 ml @ Q1H ONCE 12/02/18 DC 12/02/18 Ringer's 1,000 mls/hr IV 23:00 23:21 12/02/18 23:59 Famotidine 20 mg ONCE ONCE 12/02/18 DC 12/02/18 (Pepcid Iv) IV 23:00 23:21 12/02/18 23:01 10 mg ONCE ONCE 12/02/18 DC 12/02/18 Metoclopramid IV 23:00 23:21 e HCl 12/02/18 23:01 (Reglan) Lactated 500 ml @ Q1H ONCE 12/03/18 DC 12/03/18 Ringer's 500 mls/hr IV 01:30 01:18 12/03/18 02:29 Procedures/MDM Patient with complaint of vomiting during . ED course includes a thorough examination and history. ED course also includes labs, including CBC and metabolic panel, and ultrasound due to abdominal pain. Low suspicion for life threatening gynecological gastrointestinal emergency. Otherwise healthy patient presenting with constellation of symptoms likely representing uncomplicated hyperemesis gravidarum as characterized by history, physical exam findings, [radiologic/lab findings]. ------- US IMPRESSION: 1. Single live intrauterine with an estimated gestational age of 12 weeks 2 days based on ultrasound measurement. ------ Reassessment at 0105: Patient reports dizziness has decreased but still present after 1 L of lactated Ringer. Vomiting no longer present. Due to current presentation, will continue hydration for 30ml/kg. Reassessment at 02:25: She reported dizziness no longer along present. Patient able to tolerate p.o. fluids. Disposition education given. At home remedies discussed. Return precautions given. No respiratory distress, otherwise relatively well appearing and nontoxic. Patient educated on diagnoses, prescriptions, follow-up care, return precautions. Strict return precautions given for worsening condition; questions answered discharge. Disposition for discharge with followup in 2-3 days with PCP/clinic, probably with film recordist. Departure Diagnosis: Primary Impression: Hyperemesis gravidarum Condition: Stable Patient Instructions: Hyperemesis Gravidarum (Severe Morning Sickness) Referrals: [facility] YOU HAVE RECEIVED A MEDICAL SCREENING EXAM AND THE RESULTS INDICATE THAT YOU DO NOT HAVE A CONDITION THAT REQUIRES URGENT TREATMENT IN THE EMERGENCY DEPARTMENT. FURTHER EVALUATION AND TREATMENT OF YOUR CONDITION CAN WAIT UNTIL YOU ARE SEEN IN YOUR DOCTORS OFFICE WITHIN THE NEXT 1-2 DAYS. IT IS YOUR RESPONSIBILITY TO MAKE AN APPOINTMENT FOR FOLOW-UP CARE. IF YOU HAVE A PRIMARY DOCTOR --you should call your primary doctor and schedule an appointment IF YOU DO NOT HAVE A PRIMARY DOCTOR YOU CAN CALL OUR PHYSICIAN REFERRAL HOTLINE AT IF YOU CAN NOT AFFORD TO SEE A PHYSICIAN YOU CAN CHOSE FROM THE FOLLOWING [facility] CL[facility]ICS [facility] [address] [facility] [address] [facility]. [facility] [address] [facility] [address] [facility] [address] [facility]. [facility] [address] [facility]. [facility] YOU HAVE RECEIVED A MEDICAL SCREENING EXAM AND THE RESULTS INDICATE THAT YOU DO NOT HAVE A CONDITION THAT REQUIRES URGENT TREATMENT IN THE EMERGENCY DEPARTMENT. FURTHER EVALUATION AND TREATMENT OF YOUR CONDITION CAN WAIT UNTIL YOU ARE SEEN IN YOUR DOCTORS OFFICE WITHIN THE NEXT 1-2 DAYS. IT IS YOUR RESPONSIBILITY TO MAKE AN APPOINTMENT FOR FOLOW-UP CARE. IF YOU HAVE A PRIMARY DOCTOR --you should call your primary doctor and schedule and appointment IF YOU DO NOT HAVE A PRIMARY DOCTOR YOU CAN CALL OUR PHYSICIAN REFERRAL HOTLINE AT . IF YOU CAN NOT AFFORD TO SEE A PHYSICIAN YOU CAN CHOSE FROM THE FOLLOWING [facility] INSTITUTIONS: [facility] [address] [place] [address] [facility] [address] [place], [place] [id number] [place] [address] + [facility] [address] [place] [address] Additional Instructions: Call your primary care doctor TOMORROW for an appointment during the next 2-3 days.See the doctor sooner or return here if your condition worsens before your appointment time. ENSURE HYDRATION. RETURN TO ER IF DIZZINESS/FAINT S/S RETURN AND IF AT HOME REMEDIES AND PRESCRIPTION NOT WORKING FOR NAUSEA. NILSON MARIA NP Dec 03, 2018 17:10
== END 2018-12-03 02:41 | disposition home or self-care (01) ==
LOC: FTE 16:38
DX: O21.0 Mild hyperemesis gravidarum (principal); Z3A.12 12 weeks gestation of pregnancy
CPT/HCPCS: 36415; 76801; 76817; 80048; 81001; 84702; 85025; 96374; 96375; J2765; J7120; Z7502; Z7610